=== PATIENT | male | born 1940 | race Caucasian/White ===

== ENCOUNTER → 2016-12-10 | Day surgery (SDC) | payer MEDICARE, OTHER ==
[~2016-12-10] VITALS: Ht 185.4 cm; Wt 82.5 kg
[~2016-12-10] MED LIST: ASPI-973 PO; ATRV10T PO; Aspirin-Expunged Drug, Do Not Renew! PO; DOCU-41 PO; HYDR25CA PO; MULT-1018 PO; OXYC1TAB24 PO; Sodium Chloride LOK Flush 10 mL Syringe IV PRN; fentaNYL-PF 50 mCg/mL 2 mL Inj IVPUSH PRN
[2016-12-10 09:35] VITALS: BP 119/67; PULSE 59; RESP 16; O2SAT 100
[2016-12-10] MEDS: 0.9% Sodium Chloride 1,000 ML IV PRN ×2 (09:43→10:34)
[2016-12-10 10:48] VITALS: BP 134/66; PULSE 69; O2SAT 98
--- NOTE | 2016-12-10 21:26 | ENDO ---
[address] [address] ENDOSCOPY PROCEDURE PATIENT: NARESH PATTON : 1940 MR#: [id number] ADMIT: 12/10/2016 JOB ID: [id number] DATE OF SERVICE: 12/10/2016 PRIMARY PROVIDER: Chai Lundberg MD. PROCEDURE: Colonoscopy. INDICATIONS: A 76-year-old male who reports for colon cancer screening. EQUIPMENT: [id number]. SEDATION: None. BOWEL PREPARATION: Fair, adequate exam. PROCEDURE INFORMATION: After the risks and benefits were explained, written and verbal informed consent was obtained, the patient was placed into the left lateral decubitus position. Digital rectal examination was accomplished. No significant pathology was appreciated. The scope was introduced into the rectum and advanced under direct visualization to the cecum as identified by the appendiceal orifice and ileocecal valve. The scope was slowly withdrawn to carefully examine the mucosa for any defects or lesions. Multiple direct views were made through the dentate line for exclusion of pathology. The colon was decompressed. The scope removed from the patient who tolerated the procedure well. FINDINGS: There were some mild diverticula in the sigmoid. No significant polyps, mass lesions, or inflammatory features identified throughout. ENDOSCOPIC DIAGNOSIS: 1. Diverticulosis. 2. Otherwise visually unremarkable colonoscopy to cecum. RECOMMENDATIONS: Repeat colonoscopy 10 years' time, sooner should symptoms warrant an earlier exam.
== END | disposition home or self-care (01) ==
LOC: END 00:28
PROVIDERS: ATTEND Internal Medicine Gastroenterology
DX: Z12.11 Encounter for screening for malignant neoplasm of colon (principal); K57.30 Diverticulosis of large intestine without perforation or abscess without bleeding; E78.5 Hyperlipidemia, unspecified; G47.33 Obstructive sleep apnea (adult) (pediatric); I25.10 Atherosclerotic heart disease of native coronary artery without angina pectoris; M81.0 Age-related osteoporosis without current pathological fracture
CPT/HCPCS: G0121; J7030